=== PATIENT | female | born 1995 | race Caucasian/White ===

== ENCOUNTER 2018-03-23 15:57 | Emergency (ER) | payer OTHER ==
[~2018-03-23] VITALS: Ht 160 cm; Wt 68.9 kg
[~2018-03-23 15:57] MED LIST: ENDOCET 5-3251 EACH PO; FERROUS SULFAT325 MG PO; IBUPROFEN800 MG PO; MOTRIN800 MG PO; PERCOCET 5/31 TABLET PO; TYLENOL EXTRA500 MG PO
[2018-03-23 15:59] VITALS: BP 164/105
== END 2018-03-23 18:43 | disposition left against medical advice (07) ==
LOC: EME 15:57
DX: M79.89 Other specified soft tissue disorders (principal); M79.604 Pain in right leg; M79.605 Pain in left leg; Z53.21 Procedure and treatment not carried out due to patient leaving prior to being seen by health care provider

== ENCOUNTER 2018-03-30 16:38 | Inpatient (IN) | payer OTHER ==
[~2018-03-30] VITALS: Ht 182.9 cm; Wt 68.3 kg
[2018-03-30 17:44] LABS: ALBUMIN 3.4 g/dL (3.2-4.8); CHLORIDE 108 mEq/L (99-109); POTASSIUM 4.2 mEq/L (3.7-5.4); SODIUM 143 mEq/L (136-147)
[2018-03-30 17:46] LABS: GLUCOSE 86 mg/dL (70-99); TOTAL PROTEIN 6.2 g/dL (6.4-8.3)
[2018-03-30 17:48] LABS: TOTAL BILIRUBIN 0.4 mg/dL (0.0-1.0)
[2018-03-30 17:50] LABS: ALKALINE PHOSPHATASE 46 IU/L (3-129); CREATININE 10.9 mg/dL (0.6-1.3); GFR ESTIMATE (CALCULATED) 5 mL/min/
[2018-03-30 17:51] LABS: AST (GOT) 14 IU/L (2-34); UREA NITROGEN (BUN) 74 mg/dL (9-23)
[2018-03-30 17:53] LABS: ALT (GPT) 14 IU/L (3-49); MCH 19.9 PG (29.0-34.0); MCHC 33.3 G/DL (30.0-36.0); MCV 59.7 FL (83-99); PLATELET COUNT 315 K/uL (156-360); RBC DIS.WIDTH-CV 15.7 % (11.8-14.6); RBC DIS.WIDTH-SD 33.3 % (39-53); RED BLOOD COUNT 3.52 M/uL (3.80-5.20)
[2018-03-30 17:54] LABS: APPEARANCE SL.HAZY ((CLEAR)); BILIRUBIN NEGATIVE; BLOOD MODERATE; COLOR YELLOW ((YELLOW)); GLUCOSE (STRIP) 50; KETONES 5; LEUKOCYTES NEGATIVE; NITRITE NEGATIVE; PROTEIN (STRIP) >=500; SPECIFIC GRAVITY 1.022 (1.000-1.030); UROBILINOGEN 0.2 MG/DL (0.2-1.0)
[2018-03-30 17:59] LABS: QUANTITATIVE HCG < 4.0 MIU/ML
[2018-03-30 18:03] LABS: AMPHETAMINE NEGATIVE (500 ng/mL); BARBITURATES NEGATIVE (200 ng/mL); BENZODIAZEPINES NEGATIVE (150 ng/mL); BUPRENORPHINE NEGATIVE (10 ng/mL); COCAINE NEGATIVE (150 ng/mL); METHADONE NEGATIVE (200 ng/mL); METHAMPHETAMINE NEGATIVE (500 ng/mL); OPIATES (MORPHINE) NEGATIVE (100 ng/mL); OXYCODONE PRESUMPTIVE POSITIVE (100 ng/mL); PHENCYCLIDINE NEGATIVE (25 ng/mL); PROPOXYPHENE NEGATIVE (300 ng/mL); THC CANNABINOIDS PRESUMPTIVE POSITIVE (50 ng/mL); TRICYCLIC ANTIDEPRESSANTS NEGATIVE (300 ng/mL)
[2018-03-30] MEDS ORDERED: ADVIL200 MG PO (18:38)
[2018-03-30] MEDS ORDERED: BENADRYL25 MG PO (18:38)
[2018-03-30] MEDS ORDERED: NEXPLANON68 MG SC (18:38)
[2018-03-30 19:32] LABS: RED BLOOD CELLS 15-20 /HPF (0-5)
[2018-03-30 19:33] LABS: BACTERIA 1+ /HPF; EPITHELIAL CELLS 1+ /HPF; MUCUS NONE SEEN /LPF; UCUL ADDED? NO; WHITE BLOOD CELLS RARE /HPF (0-5)
[2018-03-30 19:52] VITALS: BP 1663/82
[2018-03-30 20:09] VITALS: BP 147/84
[2018-03-30 21:09] VITALS: BP 147/71
[2018-03-30 22:29] VITALS: BP 133/97
[2018-03-30 22:33] LABS: MAGNESIUM 2.3 mg/dL (1.3-2.7)
[2018-03-30 22:56] LABS: INTACT PARATHYROID HORMONE 352 pg/mL (10-69)
[2018-03-30 23:19] LABS: FOLIC ACID (FOLATE) 11.1 NG/ML (5.0-22.0)
[2018-03-30 23:39] LABS: C-REACTIVE PROTEIN 4.3 MG/L (0-10); IRON 49 MCG/DL (35-150); TRANSFERRIN (TIBC) 173.4 mg/dL (215-380); TRANSFERRIN SATUR. 28 % (20-55)
[2018-03-31] VITALS (11 sets, daily range): BP systolic 134–186; BP diastolic 64–96
[2018-03-31 07:24] LABS: HEMATOCRIT 23.8 % (36.0-46.0); HEMOGLOBIN 7.7 G/DL (11.9-15.5); MCH 21.4 PG (29.0-34.0); MCHC 32.4 G/DL (30.0-36.0); RBC DIS.WIDTH-SD 50.2 % (39-53); WHITE BLOOD COUNT 5.8 K/uL (4.1-10.2)
[2018-03-31 07:25] LABS: MCV 66.1 FL (83-99)
[2018-03-31 07:39] LABS: PLAT.SUFFICIENCY ADEQUATE
[2018-03-31 07:46] LABS: ALBUMIN 2.5 G/DL (3.2-4.8); CHLORIDE 110 MEQ/L (99-109); CREATININE 10.3 MG/DL (0.6-1.3); GFR ESTIMATE (CALCULATED) 5 mL/min/; GLUCOSE 71 mg/dL (70-99); PHOSPHORUS 11.9 mg/dL (2.5-4.9); POTASSIUM 4.3 MEQ/L (3.7-5.4); SODIUM 142 MEQ/L (136-147); UREA NITROGEN (BUN) 72 mg/dL (9-23)
[2018-03-31 07:56] LABS: PLATELET COUNT 188 K/uL (156-360)
[2018-03-31 08:03] LABS: FERRITIN 87 NG/ML (10-291)
[2018-03-31 09:36] LABS: IRON 77 MCG/DL (35-150); TRANSFERRIN (TIBC) 153.5 mg/dL (215-380); TRANSFERRIN SATUR. 50 % (20-55)
[2018-03-31 09:56] LABS: ANTI-DOUBLE STRANDED DNA 36 U/mL (0-99)
[2018-03-31 09:57] LABS: INTER. NORMALIZED RATIO 1.1
[2018-03-31 10:00] LABS: PTT 27.8 SEC (25-37)
[2018-03-31 10:35] LABS: C4 COMPLEMENT 27 MG/DL (10-40); CREATINE KINASE 75 IU/L (1-294)
[2018-03-31 10:50] LABS: HEPATITIS C ANTIBODY Nonreactive; HIV-1/2 AB/AG COMBO Nonreactive
[2018-03-31 10:53] LABS: HEPATITIS B SURFACE ANTIGEN Nonreactive
[2018-03-31 10:54] LABS: HEPATITIS B SURFACE ANTIBODY REACTIVE
[2018-03-31 12:17] LABS: UR CREATININE CONCENTRATION 129.3 MG/DL
[2018-03-31 12:19] LABS: URINE TOTAL PROTEIN 1767 MG/DL (0-10)
[2018-03-31 14:28] LABS: STOOL OCCULT BLD 1ST SPECIMEN NEGATIVE
[2018-03-31 14:39] LABS: STOOL OCCULT BLD 1ST SPECIMEN NEGATIVE
[2018-04-01 05:51] LABS: CARBON DIOXIDE (BICARBONATE) 19.5 MEQ/L (20-31)
[2018-04-01 06:41] LABS: HEMATOCRIT 21.5 % (36.0-46.0); HEMOGLOBIN 7.1 G/DL (11.9-15.5); MCH 21.8 PG (29.0-34.0); MCV 66.2 FL (83-99); PLATELET COUNT 181 K/uL (156-360); RBC DIS.WIDTH-CV 21.5 % (11.8-14.6); RBC DIS.WIDTH-SD 49.2 % (39-53); RED BLOOD COUNT 3.25 M/uL (3.80-5.20); WHITE BLOOD COUNT 5.3 K/uL (4.1-10.2)
[2018-04-01 06:49] LABS: ALBUMIN 2.7 G/DL (3.2-4.8); CHLORIDE 110 MEQ/L (99-109); GFR ESTIMATE (CALCULATED) 5 mL/min/; PHOSPHORUS 11.4 mg/dL (2.5-4.9); POTASSIUM 3.7 MEQ/L (3.7-5.4); SODIUM 141 MEQ/L (136-147); UREA NITROGEN (BUN) 68 mg/dL (9-23)
[2018-04-01 06:50] VITALS: BP 178/86
[2018-04-01 06:52] LABS: GLUCOSE 108 mg/dL (70-99)
[2018-04-01 23:20] VITALS: BP 134/76
[2018-04-02] VITALS (9 sets, daily range): BP systolic 138–168; BP diastolic 77–94
[2018-04-02 07:02] LABS: HEMATOCRIT 21.7 % (36.0-46.0); HEMOGLOBIN 7.1 G/DL (11.9-15.5); MCH 21.5 PG (29.0-34.0); MCHC 32.7 G/DL (30.0-36.0); MCV 65.6 FL (83-99); PLATELET COUNT 183 K/uL (156-360); RBC DIS.WIDTH-CV 21.6 % (11.8-14.6); RBC DIS.WIDTH-SD 48.9 % (39-53); RED BLOOD COUNT 3.31 M/uL (3.80-5.20); WHITE BLOOD COUNT 5.2 K/uL (4.1-10.2)
[2018-04-02 07:11] LABS: ALBUMIN 2.5 G/DL (3.2-4.8); CHLORIDE 106 MEQ/L (99-109); GFR ESTIMATE (CALCULATED) 7 mL/min/; GLUCOSE 90 mg/dL (70-99); PHOSPHORUS 8.5 mg/dL (2.5-4.9); POTASSIUM 3.6 MEQ/L (3.7-5.4); SODIUM 142 MEQ/L (136-147); UREA NITROGEN (BUN) 44 mg/dL (9-23)
[2018-04-02 07:15] LABS: CREATININE 7.5 MG/DL (0.6-1.3)
[2018-04-03 07:35] VITALS: BP 155/81
[2018-04-03 07:40] LABS: ALBUMIN 2.8 G/DL (3.2-4.8); CHLORIDE 103 MEQ/L (99-109); GFR ESTIMATE (CALCULATED) 9 mL/min/; GLUCOSE 132 mg/dL (70-99); PHOSPHORUS 6.4 mg/dL (2.5-4.9); POTASSIUM 4.3 MEQ/L (3.7-5.4); SODIUM 142 MEQ/L (136-147); UREA NITROGEN (BUN) 29 mg/dL (9-23)
[2018-04-03 07:52] LABS: CREATININE 5.9 MG/DL (0.6-1.3)
[2018-04-03 16:05] VITALS: BP 170/91
[2018-04-03 16:24] LABS: HEMATOCRIT 32.8 % (36.0-46.0); HEMOGLOBIN 10.6 G/DL (11.9-15.5); MCV 70.2 FL (83-99)
[2018-04-03 18:56] LABS: GLOMERULAR BASEMENT MEMB ABY+ <1.0 AI (<1.0)
[2018-04-03 20:29] LABS: MYELOPEROXIDASE ANTIBODY (MPO) <1.0 AI (<1.0); PROTEINASE-3 ANTIBODY+ <1.0 AI (<1.0)
[2018-04-03 23:07] VITALS: BP 153/87
[2018-04-04 06:28] LABS: ERYTHROPOIETIN+ 5.8 mIU/mL (2.6-18.5)
[2018-04-04 06:48] LABS: ALBUMIN 2.9 G/DL (3.2-4.8); CHLORIDE 99 MEQ/L (99-109); CREATININE 6.7 MG/DL (0.6-1.3); GFR ESTIMATE (CALCULATED) 8 mL/min/; GLUCOSE 126 mg/dL (70-99); PHOSPHORUS 7.9 mg/dL (2.5-4.9); POTASSIUM 4.8 MEQ/L (3.7-5.4); SODIUM 138 MEQ/L (136-147); UREA NITROGEN (BUN) 43 mg/dL (9-23)
[2018-04-04 06:55] LABS: HEMATOCRIT 28.7 % (36.0-46.0); HEMOGLOBIN 9.5 G/DL (11.9-15.5); MCH 23.3 PG (29.0-34.0); MCHC 33.1 G/DL (30.0-36.0); MCV 70.3 FL (83-99); PLATELET COUNT 188 K/uL (156-360); RBC DIS.WIDTH-CV 23.7 % (11.8-14.6); RBC DIS.WIDTH-SD 56.3 % (39-53); WHITE BLOOD COUNT 5.7 K/uL (4.1-10.2)
[2018-04-04 07:00] VITALS: BP 123/69
[2018-04-04 07:12] LABS: RED BLOOD COUNT 4.08 M/uL (3.80-5.20)
[2018-04-04 15:00] VITALS: BP 160/87
[2018-04-04 21:10] VITALS: BP 154/65
[2018-04-04 23:41] VITALS: BP 133/90
[2018-04-05 06:37] LABS: Neutrophil Cytoplasmic Aby NEGATIVE
[2018-04-05 06:43] LABS: ALBUMIN 2.8 G/DL (3.2-4.8); CHLORIDE 98 MEQ/L (99-109); GFR ESTIMATE (CALCULATED) 7 mL/min/; GLUCOSE 136 mg/dL (70-99); PHOSPHORUS 9.3 mg/dL (2.5-4.9); POTASSIUM 4.9 MEQ/L (3.7-5.4); SODIUM 135 MEQ/L (136-147)
[2018-04-05 06:44] LABS: CREATININE 7.9 MG/DL (0.6-1.3); UREA NITROGEN (BUN) 69 mg/dL (9-23)
[2018-04-05 07:16] VITALS: BP 149/80
[2018-04-05 11:19] VITALS: BP 138/79
[2018-04-05 16:27] VITALS: BP 150/86; BP 450/86
[2018-04-05 22:41] LABS: Cryocrit None Detected (()); Cryoglobulin, Qualitative Negative (Negative)
[2018-04-05 23:54] VITALS: BP 115/72
[2018-04-06 01:30] LABS: QGTB-NIL 0.66 IU/mL (()); QUANTIFERON TB GOLD NEGATIVE (Negative); TB AG-NIL <0.00 IU/mL (())
[2018-04-06 06:25] LABS: ALBUMIN 2.6 G/DL (3.2-4.8); CHLORIDE 101 MEQ/L (99-109); CREATININE 5.6 MG/DL (0.6-1.3); GFR ESTIMATE (CALCULATED) 10 mL/min/; GLUCOSE 94 mg/dL (70-99); IRON 37 MCG/DL (35-150); PHOSPHORUS 5.4 mg/dL (2.5-4.9); SODIUM 139 MEQ/L (136-147); TRANSFERRIN (TIBC) 143.2 mg/dL (215-380); TRANSFERRIN SATUR. 26 % (20-55); UREA NITROGEN (BUN) 46 mg/dL (9-23)
[2018-04-06 06:36] LABS: HEMATOCRIT 32.8 % (36.0-46.0); HEMOGLOBIN 10.6 G/DL (11.9-15.5); MCH 23.3 PG (29.0-34.0); MCHC 32.3 G/DL (30.0-36.0); MCV 72.2 FL (83-99); PLATELET COUNT 199 K/uL (156-360); RBC DIS.WIDTH-CV 24.2 % (11.8-14.6); RBC DIS.WIDTH-SD 58.7 % (39-53); RED BLOOD COUNT 4.54 M/uL (3.80-5.20); WHITE BLOOD COUNT 7.2 K/uL (4.1-10.2)
[2018-04-06 06:50] VITALS: BP 155/90
[2018-04-06 15:20] VITALS: BP 140/93
[2018-04-06 19:53] VITALS: BP 172/95
[2018-04-07 03:28] VITALS: BP 128/79
[2018-04-07 07:00] VITALS: BP 128/76
[2018-04-07 08:32] LABS: BASOPHIL (%) 0.1 % (0-1); EOSINOPHIL (%) 0 % (0-5); HEMATOCRIT 29.1 % (36.0-46.0); HEMOGLOBIN 9.5 G/DL (11.9-15.5); IMMATURE GRANULOCYTE (%) 0.5 % (0.0-0.7); LYMPHOCYTE (%) 5.5 % (15-42); LYMPHOCYTE COUNT 0.4 K/uL (1.0-2.8); MCH 23.4 PG (29.0-34.0); MCHC 32.6 G/DL (30.0-36.0); MCV 71.7 FL (83-99); MONOCYTE (%) 1.4 % (3-12); MONOCYTE COUNT 0.1 K/uL (0-0.8); NEUTROPHIL (%) 92.5 % (45-76); NEUTROPHIL COUNT 7.3 K/uL (1.8-6.4); PLATELET COUNT 184 K/uL (156-360); RBC DIS.WIDTH-CV 23.9 % (11.8-14.6); RED BLOOD COUNT 4.06 M/uL (3.80-5.20); WHITE BLOOD COUNT 7.8 K/uL (4.1-10.2)
[2018-04-07 08:49] LABS: ALBUMIN 2.5 G/DL (3.2-4.8); CHLORIDE 102 MEQ/L (99-109); POTASSIUM 4.3 MEQ/L (3.7-5.4); SODIUM 137 MEQ/L (136-147)
[2018-04-07 08:55] LABS: CREATININE 6.7 MG/DL (0.6-1.3); GFR ESTIMATE (CALCULATED) 8 mL/min/; GLUCOSE 97 mg/dL (70-99); PHOSPHORUS 7.8 mg/dL (2.5-4.9); UREA NITROGEN (BUN) 59 mg/dL (9-23)
[2018-04-07 12:00] VITALS: BP 138/87
[2018-04-07 15:39] VITALS: BP 145/73
[2018-04-07 19:30] VITALS: BP 148/80
[2018-04-07 23:35] VITALS: BP 143/89
[2018-04-08 03:41] VITALS: BP 130/71
[2018-04-08 06:56] VITALS: BP 149/76
[2018-04-08 15:15] VITALS: BP 160/92
[2018-04-08 20:40] VITALS: BP 160/95
[2018-04-08 23:14] VITALS: BP 148/83
[2018-04-09 07:00] VITALS: BP 150/74
[2018-04-09 09:34] LABS: HEMATOCRIT 28.5 % (36.0-46.0); HEMOGLOBIN 9.3 G/DL (11.9-15.5); MCH 23.1 PG (29.0-34.0); MCHC 32.6 G/DL (30.0-36.0); MCV 70.9 FL (83-99); PLATELET COUNT 185 K/uL (156-360); RBC DIS.WIDTH-CV 23.7 % (11.8-14.6); RBC DIS.WIDTH-SD 57.1 % (39-53); RED BLOOD COUNT 4.02 M/uL (3.80-5.20); WHITE BLOOD COUNT 7.7 K/uL (4.1-10.2)
[2018-04-09 09:38] LABS: ALBUMIN 2.5 G/DL (3.2-4.8); CHLORIDE 100 MEQ/L (99-109); POTASSIUM 3.8 MEQ/L (3.7-5.4); SODIUM 136 MEQ/L (136-147)
[2018-04-09 09:44] LABS: CREATININE 5.9 MG/DL (0.6-1.3); GFR ESTIMATE (CALCULATED) 9 mL/min/; GLUCOSE 94 mg/dL (70-99); PHOSPHORUS 5.9 mg/dL (2.5-4.9); UREA NITROGEN (BUN) 47 mg/dL (9-23)
[2018-04-09] MEDS ORDERED: CYCLOPHOSPHAMID50 M2 PO (11:32)
[2018-04-09] MEDS ORDERED: BACTRIM,SEPT1 TABLE1 PO (11:32)
[2018-04-09] MEDS ORDERED: LABETALOL HCL200 MG PO (11:32)
[2018-04-09] MEDS ORDERED: NICOTINE PATCH1 EAC1 TD (11:32)
[2018-04-09] MEDS ORDERED: PREDNISONE20 MG PO (11:33)
[2018-04-09] MEDS ORDERED: AMLODIPINE BESYL5 MG PO (11:33)
[2018-04-09] MEDS ORDERED: RENVELA800 MG PO (11:33)
== END 2018-04-09 16:49 | disposition home or self-care (01) | DRG 674 ==
LOC: EME 16:38 → 5EAST 20:38 → EDOF 20:38 → ENRESERV 20:39 → 5EAST 23:10
PROVIDERS: Emergency Medicine; Hospitalist; Internal Medicine; Internal Medicine Nephrology; Physician Assistant
DX: N17.9 Acute kidney failure, unspecified (principal); N01.7 Rapidly progressive nephritic syndrome with diffuse crescentic glomerulonephritis; N04.9 Nephrotic syndrome with unspecified morphologic changes; N18.6 End stage renal disease; D56.1 Beta thalassemia; D50.9 Iron deficiency anemia, unspecified; D63.1 Anemia in chronic kidney disease; I15.1 Hypertension secondary to other renal disorders; N39.0 Urinary tract infection, site not specified; E83.39 Other disorders of phosphorus metabolism; E83.51 Hypocalcemia; E87.2 Acidosis; E87.70 Fluid overload, unspecified; E88.09 Other disorders of plasma-protein metabolism, not elsewhere classified; N25.81 Secondary hyperparathyroidism of renal origin; R19.7 Diarrhea, unspecified; M54.5 Low back pain; F12.90 Cannabis use, unspecified, uncomplicated; F41.9 Anxiety disorder, unspecified; F17.210 Nicotine dependence, cigarettes, uncomplicated; Z87.738 Personal history of other specified (corrected) congenital malformations of digestive system
CPT/HCPCS: 71045; 76770; 76775; 77012; 80048; 80053; 80069; 81003; 82040; 82272; 82306; 82330; 82550; 82570; 82575; 82595 90; 82607; 82668 90; 82728; 82746; 82803; 83520 90; 83540; 83735; 83935; 83970; 84100; 84156; 84466; 84702; 84999; 85014; 85018; 85025; 85027; 85610; 85651; 85730; 86021 90; 86038; 86060 90; 86140; 86160; 86215 90; 86235; 86334; 86335; 86430; 86480 90; 86706; 86803; 86850; 86900; 86901; 86920; 87340; 87389; 88305; 88313 90; 88346 90; 88348 90; 89190; 93970; 99281; 99285; C1752; C1769; C1788; C1894; J0330; J0690; J0696; J1644; J1940; J2060; J2405; J2597; J2930; J3010; J7030; J7050; J7512; J8530; P9016

== ENCOUNTER 2018-04-28 10:08 | Inpatient (IN) | payer OTHER ==
[~2018-04-28] VITALS: Ht 160 cm; Wt 68.8 kg
[~2018-04-28 10:08] MED LIST changes: +ADVIL200 MG PO; +AMLODIPINE BESYL5 MG PO; +BACTRIM,SEPT1 TABLE1 PO; +BENADRYL25 MG PO; +CYCLOPHOSPHAMID50 M2 PO; +LABETALOL HCL200 MG PO; +NEXPLANON68 MG SC; +NICOTINE PATCH1 EAC1 TD; +PREDNISONE20 MG PO; +RENVELA800 MG PO
[2018-04-28 10:59] LABS: CHLORIDE 97 mEq/L (99-109); SODIUM 138 mEq/L (136-147)
[2018-04-28 11:01] LABS: GLUCOSE 108 mg/dL (70-99)
[2018-04-28 11:02] LABS: HEMATOCRIT 18.7 % (36.0-46.0); MCH 22.4 PG (29.0-34.0); MCHC 33.2 G/DL (30.0-36.0); MCV 67.5 FL (83-99); RBC DIS.WIDTH-CV 24.2 % (11.8-14.6); RBC DIS.WIDTH-SD 55.4 % (39-53); WHITE BLOOD COUNT 4.6 K/uL (4.1-10.2)
[2018-04-28 11:03] LABS: HEMOGLOBIN 6.2 G/DL (11.9-15.5); RED BLOOD COUNT 2.77 M/uL (3.80-5.20)
[2018-04-28 11:06] LABS: CREATININE 4.3 mg/dL (0.6-1.3); GFR ESTIMATE (CALCULATED) 14 mL/min/; POTASSIUM 3.9 mEq/L (3.7-5.4); UREA NITROGEN (BUN) 25 mg/dL (9-23)
[2018-04-28 11:37] LABS: PLAT.SUFFICIENCY ADEQUATE; PLATELET COUNT 148 K/uL (156-360)
[2018-04-28] MEDS ORDERED: NORVASC5 MG PO (12:24)
[2018-04-28] MEDS ORDERED: XANAX0.25 MG PO (12:24)
[2018-04-28] MEDS ORDERED: FLUOXETINE HCL20 MG PO (12:24)
[2018-04-28 14:40] VITALS: BP 114/81
[2018-04-28 17:50] VITALS: BP 104/68
[2018-04-28 18:12] VITALS: BP 104/69
[2018-04-28 18:45] VITALS: BP 109/67
[2018-04-28 19:08] VITALS: BP 109/67
[2018-04-28 23:10] VITALS: BP 119/68
[2018-04-29] VITALS (13 sets, daily range): BP systolic 112–184; BP diastolic 71–99
[2018-04-29 05:47] LABS: MCH 23.5 PG (29.0-34.0); MCHC 31.8 G/DL (30.0-36.0); PLATELET COUNT 176 K/uL (156-360); RED BLOOD COUNT 2.98 M/uL (3.80-5.20)
[2018-04-29 05:49] LABS: MCV 73.8 FL (83-99)
[2018-04-29 06:13] LABS: CHLORIDE 97 MEQ/L (99-109); POTASSIUM 4.6 MEQ/L (3.7-5.4); SODIUM 138 MEQ/L (136-147); UREA NITROGEN (BUN) 32 mg/dL (9-23)
[2018-04-29 06:16] LABS: CREATININE 5.9 MG/DL (0.6-1.3); GFR ESTIMATE (CALCULATED) 9 mL/min/; GLUCOSE 72 mg/dL (70-99)
[2018-04-29 06:44] LABS: ANISOCYTOSIS 1+; BASOPHIL (%) 0.4 % (0-1); EOSINOPHIL COUNT 0.2 K/uL (0-0.3); IMMATURE GRANULOCYTE (%) 0.8 % (0.0-0.7); LYMPHOCYTE (%) 12.9 % (15-42); LYMPHOCYTE COUNT 0.7 K/uL (1.0-2.8); MICROCYTOSIS 1+; MONOCYTE (%) 4.8 % (3-12); MONOCYTE COUNT 0.2 K/uL (0-0.8); NEUTROPHIL (%) 78.1 % (45-76); NEUTROPHIL COUNT 3.9 K/uL (1.8-6.4); POIKILOCYTOSIS 2+
[2018-04-29 09:16] LABS: ALBUMIN 2.2 G/DL (3.2-4.8)
[2018-04-29 09:30] LABS: PHOSPHORUS 3.2 mg/dL (2.5-4.9)
[2018-04-30] VITALS (10 sets, daily range): BP systolic 119–179; BP diastolic 71–99
[2018-04-30 08:50] LABS: BASOPHIL (%) 0.6 % (0-1); EOSINOPHIL (%) 2.9 % (0-5); EOSINOPHIL COUNT 0.2 K/uL (0-0.3); HEMATOCRIT 28.7 % (36.0-46.0); IMMATURE GRANULOCYTE (%) 1.4 % (0.0-0.7); LYMPHOCYTE (%) 9.5 % (15-42); LYMPHOCYTE COUNT 0.5 K/uL (1.0-2.8); MCHC 33.1 G/DL (30.0-36.0); MCV 75.5 FL (83-99); MONOCYTE (%) 3.5 % (3-12); MONOCYTE COUNT 0.2 K/uL (0-0.8); NEUTROPHIL (%) 82.1 % (45-76); NEUTROPHIL COUNT 4.3 K/uL (1.8-6.4); PLATELET COUNT 218 K/uL (156-360); WHITE BLOOD COUNT 5.2 K/uL (4.1-10.2)
[2018-04-30 08:51] LABS: HEMOGLOBIN 9.5 G/DL (11.9-15.5)
[2018-04-30 09:16] LABS: ANISOCYTOSIS 2+; BASOPH.STIPPLING 1+; HYPOCHROMASIA 2+; MACROCYTES 1+; MICROCYTOSIS 1+; OVALOCYTES 1+; POIKILOCYTOSIS 1+; POLYCHROMASIA 2+; TARGET CELLS 1+
[2018-04-30 09:46] LABS: HEMOGLOBIN 9.1 G/DL (11.9-15.5); MCH 25.4 PG (29.0-34.0); MCHC 33.7 G/DL (30.0-36.0); MCV 75.4 FL (83-99); PLATELET COUNT 187 K/uL (156-360); RED BLOOD COUNT 3.58 M/uL (3.80-5.20)
[2018-04-30 09:59] LABS: ALBUMIN 2.4 G/DL (3.2-4.8); CHLORIDE 96 MEQ/L (99-109); POTASSIUM 4.6 MEQ/L (3.7-5.4); SODIUM 133 MEQ/L (136-147)
[2018-04-30 10:09] LABS: GFR ESTIMATE (CALCULATED) 7 mL/min/; GLUCOSE 75 mg/dL (70-99); PHOSPHORUS 3.7 mg/dL (2.5-4.9); UREA NITROGEN (BUN) 44 mg/dL (9-23)
[2018-04-30 10:13] LABS: ANISOCYTOSIS 2+; BASOPHIL (%) 0.4 % (0-1); CREATININE 7.9 MG/DL (0.6-1.3); EOSINOPHIL (%) 2.6 % (0-5); EOSINOPHIL COUNT 0.1 K/uL (0-0.3); HYPOCHROMASIA 1+; IMMATURE GRANULOCYTE (%) 1.4 % (0.0-0.7); LYMPHOCYTE (%) 8.9 % (15-42); LYMPHOCYTE COUNT 0.4 K/uL (1.0-2.8); MACROCYTES 1+; MICROCYTOSIS 1+; MONOCYTE COUNT 0.2 K/uL (0-0.8); NEUTROPHIL (%) 82.7 % (45-76); NEUTROPHIL COUNT 4.1 K/uL (1.8-6.4); OVALOCYTES 1+; POIKILOCYTOSIS 2+; POLYCHROMASIA 1+; SCHISTOCYTES 1+
[2018-05-01 03:51] VITALS: BP 117/72
[2018-05-01 06:55] VITALS: BP 123/97
[2018-05-01 15:45] VITALS: BP 128/88
[2018-05-01 20:00] VITALS: BP 129/81
[2018-05-01 23:48] VITALS: BP 121/84
[2018-05-02 06:07] LABS: HEMATOCRIT 29.5 % (36.0-46.0); HEMOGLOBIN 9.7 G/DL (11.9-15.5); MCH 24.9 PG (29.0-34.0); MCHC 32.9 G/DL (30.0-36.0); MCV 75.6 FL (83-99); WHITE BLOOD COUNT 4.6 K/uL (4.1-10.2)
[2018-05-02 06:09] LABS: PLATELET COUNT 263 K/uL (156-360)
[2018-05-02 06:29] LABS: CHLORIDE 94 MEQ/L (99-109); CREATININE 7.4 MG/DL (0.6-1.3); GFR ESTIMATE (CALCULATED) 7 mL/min/; GLUCOSE 71 mg/dL (70-99); POTASSIUM 4.9 MEQ/L (3.7-5.4); SODIUM 135 MEQ/L (136-147); UREA NITROGEN (BUN) 34 mg/dL (9-23)
[2018-05-02 07:08] LABS: ANISOCYTOSIS 1+; BASOPHIL (%) 0.6 % (0-1); BURR CELLS 1+; EOSINOPHIL (%) 3.9 % (0-5); EOSINOPHIL COUNT 0.2 K/uL (0-0.3); HYPOCHROMASIA 1+; IMMATURE GRANULOCYTE (%) 0.6 % (0.0-0.7); LYMPHOCYTE (%) 12.1 % (15-42); LYMPHOCYTE COUNT 0.6 K/uL (1.0-2.8); MICROCYTOSIS 1+; MONOCYTE (%) 6.5 % (3-12); MONOCYTE COUNT 0.3 K/uL (0-0.8); NEUTROPHIL (%) 76.3 % (45-76); NEUTROPHIL COUNT 3.5 K/uL (1.8-6.4); OVALOCYTES 1+; POIKILOCYTOSIS 2+; POLYCHROMASIA 1+
[2018-05-02 07:31] VITALS: BP 123/89
[2018-05-02] MEDS ORDERED: LEVOFLOXACIN750 MG PO (11:39)
[2018-05-02] MEDS ORDERED: TRAMADOL HCL50 MG PO (11:39)
[2018-05-02] MEDS ORDERED: BACTRIM,SEPT1 TABLET PO (11:40)
[2018-05-02] MEDS ORDERED: RENVELA800 MG PO (12:29)
== END 2018-05-02 14:10 | disposition home or self-care (01) | DRG 193 ==
LOC: EME 10:08 → ENRESERV 10:45 → EME 10:54 → EDOF 12:01 → 5EAST 12:01 → ENRESERV 12:07 → 5EAST 14:18
PROVIDERS: Emergency Medicine; Hospitalist; Internal Medicine Nephrology; Student in an Organized Health Care Education/Training Program
PROC: 30233N1 Transfusion of Nonautologous Red Blood Cells into Peripheral Vein, Percutaneous Approach (ICD-10-PCS; principal; 2018-04-28)
PROC: 5A1D70Z Performance of Urinary Filtration, Intermittent, Less than 6 Hours Per Day (ICD-10-PCS; 2018-04-30)
DX: J18.9 Pneumonia, unspecified organism (principal); N18.6 End stage renal disease; I12.0 Hypertensive chronic kidney disease with stage 5 chronic kidney disease or end stage renal disease; N25.81 Secondary hyperparathyroidism of renal origin; R04.2 Hemoptysis; E24.2 Drug-induced Cushing's syndrome; D63.1 Anemia in chronic kidney disease; F17.210 Nicotine dependence, cigarettes, uncomplicated; F12.90 Cannabis use, unspecified, uncomplicated; D89.9 Disorder involving the immune mechanism, unspecified; E83.39 Other disorders of phosphorus metabolism; T45.1X5A Adverse effect of antineoplastic and immunosuppressive drugs, initial encounter; D64.89 Other specified anemias; Z99.2 Dependence on renal dialysis; Z79.52 Long term (current) use of systemic steroids; Z91.14 Patient's other noncompliance with medication regimen
CPT/HCPCS: 71046; 71250; 80048; 80069; 82040; 83605; 84100; 84145 90; 85025; 85025 91; 85027; 86850; 86900; 86901; 86920; 87040; 87070; 87205; 87449; 87641; 94640; 94760; 94799; 99281; 99285; J0881; J1644; J1956; J2543; J3370; J7060; P9016; S0039